=== PATIENT | female | born 2000 | race Caucasian/White ===

== ENCOUNTER 2020-03-24 23:04 | Emergency (ER) | payer OTHER ==
[~2020-03-24] VITALS: Ht 149.9 cm; Wt 71.7 kg
[2020-03-24 23:12] VITALS: Ht 149.9 cm; Wt 71.7 kg
[2020-03-25 02:21] VITALS: BP 113/74
== END 2020-03-25 02:21 | disposition home or self-care (01) ==
LOC: ED 23:04
DX: S06.0X0A Concussion without loss of consciousness, initial encounter (principal); V49.59XA Passenger injured in collision with other motor vehicles in traffic accident, initial encounter; Y93.89 Activity, other specified; Y92.488 Other paved roadways as the place of occurrence of the external cause; Y99.8 Other external cause status
CPT/HCPCS: Q0162

== ENCOUNTER 2020-04-05 18:49 | Emergency (ER) | payer OTHER ==
[~2020-04-05] VITALS: Ht 149.9 cm; Wt 73.0 kg
[2020-04-05 18:50] VITALS: Ht 149.9 cm; Wt 73.0 kg
[2020-04-05 21:23] VITALS: BP 116/78
== END 2020-04-05 21:45 | disposition home or self-care (01) ==
LOC: ED 18:49
DX: T78.40XA Allergy, unspecified, initial encounter (principal); F41.9 Anxiety disorder, unspecified; Z88.8 Allergy status to other drugs, medicaments and biological substances; X58.XXXA Exposure to other specified factors, initial encounter
CPT/HCPCS: J1200; J2930; J3490; J7030

== ENCOUNTER 2020-04-07 16:52 | Emergency (ER) | payer OTHER ==
[~2020-04-07] VITALS: Ht 149.9 cm; Wt 72.6 kg
[2020-04-07 17:08] VITALS: Ht 149.9 cm; Wt 72.6 kg
[2020-04-07 17:29] VITALS: BP 110/62
== END 2020-04-07 17:29 | disposition home or self-care (01) ==
LOC: ED 16:52
DX: J45.909 Unspecified asthma, uncomplicated (principal); Z13.9 Encounter for screening, unspecified; Z88.8 Allergy status to other drugs, medicaments and biological substances